=== PATIENT | male | born 1970 | race Caucasian/White ===

== ENCOUNTER 2024-06-25 11:47 | Emergency (ER) | payer OTHER ==
[2024-06-25 12:08] VITALS: BP 124/84; PULSE 70; RESP 18; TEMP 98.2; BMI 29.5
[2024-06-25] MEDS ORDERED: DIPHTH,PERTUSS(ACELL),TET 0.5 ML DISP.SYRIN IM ONE (12:32)
[2024-06-25] MEDS: DIPHTH,PERTUSS(ACELL),TET 0.5 ML DISP.SYRIN IM ONE (12:34)
== END 2024-06-25 12:43 | disposition home or self-care (01) ==
LOC: FER 11:47
PROC: 3E0234Z Introduction of Serum, Toxoid and Vaccine into Muscle, Percutaneous Approach (ICD-10-PCS; principal; 2024-06-25)
DX: L03.115 Cellulitis of right lower limb (principal); Z23 Encounter for immunization
CPT/HCPCS: 90471; 90715; 99284-25